=== PATIENT | male | born 1970 | race Two or more races ===

== ENCOUNTER → 2024-05-10 | Day surgery (SDC) | payer OTHER ==
[2024-05-04 11:18] LABS: HEMATOCRIT 48.2 % (39.0-48.0); HEMOGLOBIN 16.8 g/dL (13-16.00); MEAN CELL VOLUME 90.4 fL (80.0-100.00); MEAN CORPUSCULAR HEMOGLOBIN 31.5 pg (27.00-32.0); MEAN CORPUSCULAR HGB CONC 34.9 g/dl (32.0-36.0); PLATELET COUNT 289 K/uL (150-450); RED BLOOD COUNT 5.33 M/uL (4.00-6.00); RED CELL DISTRIBUTION WIDTH 13.3 % (11.5-14.5)
[2024-05-04 11:19] LABS: PH,URINE 5.5 (5.0-8.0); URINE APPEARANCE Clear; URINE BACTERIA 23.9 uL (0.0-1933); URINE BILIRRUBIN Negative (NEGATIVE); URINE BLOOD Negative; URINE COLOR Yellow; URINE EPITHELIAL CELLS 2.3 uL (0.0-38.8); URINE GLUCOSE Negative (NEGATIVE); URINE KETONE Negative (NEGATIVE); URINE LEUKOCYTE Negative; URINE NITRATE Negative; URINE PROTEIN Negative (NEGATIVE); URINE UROBILINOGEN 0.2 E.U./dl; URINE WBC 3.2 uL (0.0-23.2)
[2024-05-04 11:53] LABS: ALBUMIN 4.1 gm/dL (3.4-5.0); BILIRUBIN TOTAL 0.38 mg/dL (0.3-1.2); CALCIUM 9.9 mg/dL (8.5-10.1); CREATININE SERUM 1.49 mg/dL (0.70-1.30); GFR 48.79; GLOBULINA 3.6 G/DL (2.4-3.5); POTASSIUM 4.84 mEq/L (3.5-5.1); TOTAL PROTEIN 7.7 gm/dL (6.4-8.2)
[2024-05-04 11:56] LABS: URINE RBC 1.6 uL (0.0-20.8)
[2024-05-04 12:04] LABS: INR 0.98; PROTHROMBIN TIME 10.7 SECONDS (9.0-11.5)
[~2024-05-10] VITALS: Ht 182.9 cm; Wt 108.9 kg
[~2024-05-10] MED LIST: BUPIVACAINE HCL 30 ML VIAL IJ ONE; BUPIVACAINE HCL/MPF 0.5% 30ML VIAL ONE; CEFAZOLIN SODIUM 1,000 MG VIAL IV ONE; CEFAZOLIN SODIUM 1,000 MG VIAL ONE; KETO10TA2 PO; KETOROLAC TROMETHAMINE 30 MG VIAL IU ONE; KETOROLAC TROMETHAMINE 30 MG VIAL ONE; MIRALAX17 GM PO; SUGAMMADEX SODIUM 200 MG/2 ML VIAL IV ONE; TRAMADOL HCL50 MG PO; TYLENOL ARTHRI650 MG PO
== END | disposition home or self-care (01) ==
LOC: ADM 05-04 07:00 → CIR.AMB 08:13
PROVIDERS: ATTEND Surgery
DX: K40.20 Bilateral inguinal hernia, without obstruction or gangrene, not specified as recurrent (principal); K42.0 Umbilical hernia with obstruction, without gangrene
CPT/HCPCS: 49650; 49592; C1781